=== PATIENT | female | born 1970 | race Caucasian/White ===

== ENCOUNTER 2017-07-23 18:24 | Emergency (ER) | payer SELFPAY ==
[2017-07-23 19:51] VITALS: BP 141/74
== END 2017-07-23 20:26 | disposition home or self-care (01) ==
LOC: ED 18:24
DX: J20.9 Acute bronchitis, unspecified (principal); Z90.49 Acquired absence of other specified parts of digestive tract

== ENCOUNTER 2017-09-24 10:16 | Emergency (ER) | payer MEDICAID ==
[~2017-09-24] VITALS: Ht 162.6 cm; Wt 82.1 kg
[2017-09-24 10:19] VITALS: Ht 162.6 cm; Wt 82.1 kg
[2017-09-24 11:20] VITALS: BP 138/89
== END 2017-09-24 11:20 | disposition home or self-care (01) ==
LOC: ED 10:16
DX: Z76.0 Encounter for issue of repeat prescription (principal)

== ENCOUNTER 2017-12-15 20:31 | Emergency (ER) | payer MEDICAID ==
[~2017-12-15] VITALS: Ht 162.6 cm; Wt 82.3 kg
[2017-12-15 20:46] VITALS: Ht 162.6 cm; Wt 82.3 kg
[2017-12-15 21:29] VITALS: BP 131/81
== END 2017-12-15 21:29 | disposition home or self-care (01) ==
LOC: ED 20:31
DX: G47.00 Insomnia, unspecified (principal); Z76.0 Encounter for issue of repeat prescription

== ENCOUNTER 2018-04-21 10:41 | Emergency (ER) | payer MEDICAID ==
[~2018-04-21] VITALS: Ht 162.6 cm; Wt 78.9 kg
[2018-04-21 10:49] VITALS: Ht 162.6 cm; Wt 78.9 kg
[2018-04-21 11:42] VITALS: BP 128/74
== END 2018-04-21 11:41 | disposition home or self-care (01) ==
LOC: ED 10:41
DX: R05 Cough (principal)